=== PATIENT | female | born 1955 ===

== ENCOUNTER 2020-10-01 08:08 | Day surgery (SDC) | payer OTHER ==
[~2020-10-01 08:08] MED LIST: SYNTHROID75 MCG PO
[2020-10-01] MEDS ORDERED: MACROBID 100 M100 MG PO (12:38)
== END 2020-10-01 14:25 | disposition home or self-care (01) ==
LOC: CIR.AMB 08:08
PROVIDERS: ATTEND Obstetrics & Gynecology Gynecology
DX: N81.11 Cystocele, midline (principal); Z20.822 Contact with and (suspected) exposure to COVID-19